=== PATIENT | female | born 1995 | race Caucasian/White ===

== ENCOUNTER 2024-08-01 03:30 | Emergency (ER) | payer OTHER, SELFPAY ==
[2024-08-01 03:32] VITALS: BP 136/84; PULSE 94; RESP 16; TEMP 36.3; O2SAT 100
--- NOTE | 2024-08-01 04:05 | ED_ITS ---
HPI - Dental/Oral General Chief complaint: Dental/Oral Stated complaint: intense right sided jaw pain x2 days Time Seen by Provider: 08/01/24 03:42 History of Present Illness HPI Narrative: Patient saw a dentist a few weeks ago, told she needed a root canal, and was going to f/u with oral surgeon but over last 1-2 days has had more jaw pain and feels like she has a swollen lymph node. No throat swelling. No difficulty breathing. Related Data Allergies Allergy/AdvReac Type Severity Reaction Status Date / Time No Known Allergies Allergy Verified 08/01/24 03:36 Review of Systems Review of Systems: All systems reviewed & are unremarkable except as noted in HPI and below Exam Narrative: EXAMINATION OF ORGAN SYSTEMS/BODY AREAS: Constitutional: Vital signs per nursing GENERAL:[No acute distress, non-toxic appearing.] HEAD: Normal with no signs of head trauma. EYES: EOMI, conjunctiva normal ENT: Normal TMs. No significant jaw swelling. No trismus. Slight tenderness R lower molar LUNGS: Nonlabored breathing. HEART: [Regular rate and rhythm] ABD: [Soft], [nontender to palpation] EXT: Normal range of motion SKIN: [No rashes or lesions.] NEURO: [Alert and oriented x 3. No gross focal sensory or strength deficits.] PSYCH: Normal affect Course Vital Signs Vital signs: Vital Signs Temperature 97.3 F L 08/01/24 03:32 Pulse Rate 94 08/01/24 03:32 Respiratory Rate 16 08/01/24 03:32 Blood Pressure 136/84 08/01/24 03:32 Pulse Oximetry 100 08/01/24 03:32 Temperature 97.3 F L 08/01/24 03:32 Pulse Rate 94 08/01/24 03:32 Respiratory Rate 16 08/01/24 03:32 Blood Pressure 136/84 08/01/24 03:32 Pulse Oximetry 100 08/01/24 03:32 MDM - Dental/Oral MDM Narrative Medical decision making narrative: ED COURSE AND MEDICAL DECISION MAKING: Patient with worsening dental pain and dental decay. No palpable abscess. No systemic signs or symptoms. Antibiotics are administered. [Dental block is performed with some relief of pain.] Patient will be calling her oral surgeon tomorrow morning. Patient was given return precautions and discharged home in stable condition. Dental block procedure note Verbal consent obtained from the patient after risks and benefits were explained. [Right inferior and superior alveolar block] was done with 1 mL of bupivacaine 0.5% with epi. The patient has significant relief after the injection and tolerated the procedure well.? Pulse oximetry interpretation: not hypoxic. Discharge Plan Discharge Clinical Impression: Toothache, Jaw pain Patient Disposition: Home, Self-Care Condition: Stable Instructions: Toothache (ED) Additional Instructions: Please call the oral surgeon as soon as possible. Take the medications as prescribed and come back if your symptoms worsen. Patient Language: Kazakh Prescriptions: New ketorolac 10 mg tablet 10 mg PO Q6H PRN (Reason: pain) Qty: 20 0RF Rx Instructions: maximum total duration of 5 days from all oral, intranasal, or parenteral formulations oxycodone 5 mg capsule 5 mg PO Q8H PRN (Reason: pain) Qty: 7 0RF amoxicillin 500 mg capsule 500 mg PO Q8H 7 Days Qty: 21 0RF ketorolac 10 mg tablet 10 mg PO Q6H PRN (Reason: pain) Qty: 20 0RF Rx Instructions: maximum total duration of 5 days from all oral, intranasal, or parenteral formulations oxycodone 5 mg capsule 5 mg PO Q6H PRN (Reason: pain) Qty: 7 0RF Follow-up/Referrals: PHYSICIAN NOT ON STAFF,NONSTAFF [Primary Care Provider] -
[2024-08-01] MEDS: AMOXICILLIN 500 MG CAPSULE PO (04:06)
== END 2024-08-01 04:25 | disposition home or self-care (01) ==
LOC: ANHED 04:04
PROVIDERS: Emergency Provider Emergency Medicine
DX: R68.84 Jaw pain (principal); K08.89 Other specified disorders of teeth and supporting structures
CPT/HCPCS: 99283; A9270